=== PATIENT | female | born 1955 | race Caucasian/White ===

== ENCOUNTER → 2019-12-18 10:18 | Outpatient (CLI) | payer MEDICARE, MEDICAID, SELFPAY ==
[2019-12-18 13:08] LABS: Coronavirus 19 IgG Antibody Negative (Negative); Coronavirus 19 IgM Antibody Negative (Negative)
== END ==
PROVIDERS: Visit Provider Internal Medicine Gastroenterology
DX: Z03.818 Encounter for observation for suspected exposure to other biological agents ruled out (principal)
CPT/HCPCS: 36415; 86328

== ENCOUNTER → 2019-12-24 10:15 | Outpatient (CLI) | payer MEDICARE, MEDICAID, SELFPAY ==
--- NOTE | 2019-12-24 10:17 | CT_ITS ---
PROCEDURE: CT ABDOMEN PELVIS W CON CLINICAL INDICATION: MELENA Rectal bleeding COMPARISON: No exams were available for comparison TECHNIQUE: IV Contrast: 75ML OPTIRAY 350 Oral Contrast none Axial images obtained with sagittal and coronal reformats. All CT scans at the facility use one or more dose reduction, viz: automated exposure control, ma/kV adjustment per patient size (including targeted exams where dose is matched to indication, i.e. head), or iterative reconstruction technique. FINDINGS: LOWER THORAX: There are mild atelectatic or fibrotic changes in the lingula ABDOMEN & PELVIS: Prior cholecystectomy with biliary ectasia. 8 mm hypodensity is present in the right hepatic lobe anteriorly may be due to small cyst. The spleen and adrenal glands have an unremarkable appearance. There is an exophytic lobular appearing isodense area projecting off the anterior aspect of the tail the pancreas measuring 11 by 8 mm. There is a small calcification along the left lateral aspect of this lesion. Average density is less than 10 Hounsfield units. No obvious pancreatic ductal dilatation.. The right kidney has an unremarkable appearance. There is some cortical scarring of the left kidney anteriorly. Suspect a small cyst along the lower pole of the right kidney at 9 mm. There has been a prior hysterectomy. No evidence of intestinal obstruction or free air. No evidence of appendicitis or diverticulitis. Small amount of fluid is present in the central pelvic region slightly to the right. There are degenerative changes in the lumbar spine and hips IMPRESSION: 1. 11 x 8 mm hypodense lesion projects off the anterior aspect of the tail the pancreas. This is indeterminate possibly due to cystic lesion or a side-branch intraductal pancreatic mucinous neoplasm/IPMN. MRI with pancreatic protocol suggested for further evaluation 2. Other nonacute findings as described above Dictated by: Lion Harris MD 12/25/2019 10:59 Electronically signed by Lion Harris MD in [place] 12/25/2019 10:59
== END ==
PROVIDERS: PCP Nurse Practitioner Family; Visit Provider Nurse Practitioner Family
DX: K92.1 Melena (principal)
CPT/HCPCS: 74177; Q9967

== ENCOUNTER → 2020-01-01 10:39 | Outpatient (CLI) | payer MEDICARE, MEDICAID, SELFPAY ==
--- NOTE | 2020-01-01 10:43 | MR_ITS ---
PROCEDURE: MR ABDOMEN WO/W CON CLINICAL INDICATION: NEOPLASM OF UNCERTAIN BEHAVIOR, LESION SEEN ON CT IN PACREAS Pancreatic lesion follow-up COMPARISON: CT ABDOMEN PELVIS W CON from 12/24/2019 TECHNIQUE: Routine multiplanar multi echo sequences are performed without and with gadolinium enhancement. MRCP images also performed. FINDINGS: There is a 10 mm cyst in the lower pole of the right kidney. A small cystic areas present in the junction of the right left hepatic lobe at 6 mm. The spleen and adrenal glands have an unremarkable appearance. There has been a prior cholecystectomy with ductal ectasia. There is a mildly prominent cystic duct remnant measuring approximately 10 mm in diameter. There is an exophytic lobulated cystic lesion along the anterior aspect of the tail the pancreas measuring 1.3 by 0.8 cm corresponding to the CT abnormality. This does not demonstrate contrast enhancement. This is hypointense on T1 and hyperintense on T2. MRCP images are obtained under somewhat limited secondary to motion artifact. This lesion however does not appear to communicate with the pancreatic duct. CT did show a small focus of calcification along the posterior aspect of this lesion. IMPRESSION: 1.3 x 0.8 cm cystic lesion of the tail the pancreas. The this is nonspecific and could be due to a small pseudo cyst as there is a small focus of calcification noted on the CT scan. A small cystic pancreatic neoplasm is not excluded. Suggest [address] follow-up to confirm short term stability. Prior cholecystectomy. There is mild prominence of the cystic duct remnant Dictated by: Lion Harris MD 01/15/2020 10:52 Electronically signed by Lion Harris MD in [place] 01/15/2020 10:52
[2020-01-01 11:11] LABS: Blood Urea Nitrogen 10 mg/dl (7-17); Estimated Glomerular Filt Rate 84 ml/min (>60); GFR (African American) 102 ML/MIN (>60)
== END ==
LOC: RAD 10:40
PROVIDERS: PCP Nurse Practitioner Family; Visit Provider Nurse Practitioner Family
DX: D37.8 Neoplasm of uncertain behavior of other specified digestive organs (principal)
CPT/HCPCS: 36415; 74183; 82565; 84520; A9576

== ENCOUNTER → 2020-01-07 10:51 | Outpatient (CLI) | payer MEDICARE, MEDICAID, SELFPAY | PROVIDERS: PCP Nurse Practitioner Family; Visit Provider Nurse Practitioner Family | DX: D37.8 Neoplasm of uncertain behavior of other specified digestive organs (principal) ==

== ENCOUNTER → 2020-03-08 13:05 | Outpatient (POV) | payer MEDICARE, MEDICAID, SELFPAY ==
[2020-03-08 14:18] LABS: Basophils # 0.2 K/mm3 (0-0.2); Basophils % 1.5 % (0.1-2.0); Eosinophils # 0.6 K/mm3 (0.0-0.4); Eosinophils % 6.2 % (0.1-12.0); Hematocrit 39.9 % (37.0-47.0); Hemoglobin 13.8 g/dL (12.2-16.2); Lymphocytes # 3.1 K/mm3 (0.7-4.5); Lymphocytes % 30.3 % (10-50); Mean Corpuscular HGB Conc 34.7 g/dL (31.8-35.4); Mean Corpuscular Hemoglobin 31.2 pg (27.0-31.2); Mean Platelet Volume 8.5 fl (7.4-10.4); Monocytes # 0.5 K/mm3 (0.1-1.0); Monocytes % 5.2 % (1.7-9.3); Neutrophils # 5.8 K/mm3 (1.8-7.8); Neutrophils % 56.9 % (37.0-80.0); Platelet Count 266 K/mm3 (142-424); Red Blood Count 4.43 M/mm3 (4.20-5.40); Red Cell Distribution Width 13.6 % (11.5-17.5); White Blood Count 10.2 K/mm3 (4.8-10.8)
[2020-03-08 14:46] LABS: Alanine Aminotransferase 12 U/L (12-78); Albumin Level 4.4 g/dl (3.5-5.0); Albumin/Globulin Ratio 1.6 (1.1-1.8); Alkaline Phosphatase 97 U/L (38-126); Anion Gap 12.4 mEq/L (5-15); Aspartate Amino Transferase 23 U/L (14-36); Bilirubin,Total 0.6 mg/dl (0.2-1.3); Blood Urea Nitrogen 10 mg/dl (7-17); Calcium 10.7 mg/dl (8.4-10.2); Carbon Dioxide 33 mmol/L (22.0-30.0); Chloride 99 mmol/L (98-107); Estimated Glomerular Filt Rate 84 ml/min (>60); GFR (African American) 102 ML/MIN (>60); Globulin 2.7 g/dL (1.3-3.2); Glucose 116 mg/dl (74-100); Potassium 4.4 mmoL/L (3.5-5.1); Sodium 140 mmol/L (136-145); Total Protein,Serum 7.1 g/dl (6.3-8.2)
[2020-03-08 15:06] LABS: Iron 66 ug/dL (37-170)
[2020-03-08 15:15] LABS: Total Iron Binding Capacity 279 ug/dL (265-497)
[2020-03-08 15:42] LABS: Ferritin 97.5 ng/ml (11.1-264)
[2020-03-08 15:50] LABS: C-Reactive Protein 0.7 mg/L (0-4)
== END ==
PROVIDERS: Visit Provider Nurse Practitioner Family
DX: R10.9 Unspecified abdominal pain (principal); K59.00 Constipation, unspecified; K62.5 Hemorrhage of anus and rectum
CPT/HCPCS: 36415; 80053; 82728; 83540; 83550; 85025; 86140

== ENCOUNTER → 2020-03-26 13:14 | Outpatient (CLI) | payer MEDICARE, MEDICAID, SELFPAY ==
[2020-03-26 14:55] LABS: Coronavirus 19 IgG Antibody Negative (Negative); Coronavirus 19 IgM Antibody Negative (Negative)
== END ==
PROVIDERS: Visit Provider Internal Medicine Gastroenterology
DX: Z01.818 Encounter for other preprocedural examination (principal); Z12.11 Encounter for screening for malignant neoplasm of colon
CPT/HCPCS: 36415; 86328

== ENCOUNTER 2020-03-29 13:12 | Day surgery (SDC) | payer MEDICARE, MEDICAID, SELFPAY ==
[2020-03-24 12:25] VITALS: BMI 25.0
[2020-03-29 13:53] VITALS: BP 166/59; PULSE 62; RESP 18; TEMP 36.3; O2SAT 96
[2020-03-29 14:50] VITALS: O2SAT 97
--- NOTE | 2020-03-29 14:56 | HMH.ANESCL ---
[facility] Anesthesia Checklist - Patient Identification Patient Identification: Arm Band - Structural Data Admitted From: Home Planned Operative Procedure/s: colonoscopy Consent for Planned Operative Procedure(s) Verified: Yes Verified Documents: Surgical Consent, History and Physical - NPO Status Verified Time NPO: 00:00 - Additional verifications Anesthesia Reactions: No - Airway Assessment C-Spine Mobility Assessed: Yes (mp2) TMJ Mobility Assessed: Yes Dentition: Good Dentition - Neurological Assessment Level of Consciousness: Awake, Alert - Anesthesia Plan Anesthesia Risk discussed: Yes Anesthesia Plan: Verified ASA Class: II Anesthesia Type: MAC [facility] History I have reviewed the patient's past medical history: Yes Medical History: Reports:: Hyperlipidemia, Hypertension Denies:: Cancer, Diabetes Mellitus Type 1, Diabetes Mellitus Type 2, Internal Pacemaker, MRSA, Seizures *Have you ever received a pneumonia vaccine?: Yes *Have you received a flu vaccine this season?: Yes Anesthesia experience/problems:: nac Other Surgeries: Yes: Cholecystectomy, , Hysterectomy-Total. No: Pacemaker Amputation: No Fractures: No - *Social History Last grade of school completed: High school graduate Smoking Status: Never smoker Alcohol Intake: never Substance Use Type: denies use *Occupational Status:: retired Housing: house Household Members: children *Travel in the last 8 weeks: None Family Hx:: No significant family history
--- NOTE | 2020-03-29 15:14 | P.PCN_ITS ---
[facility] Procedure Note Procedure Note:: Colonoscopy Procedure Report: Colonoscopy with monopolar ablation/coagulation of internal hemorrhoids to destruction Endoscopist: Augustin Tate II, MD Referring physician: KUMAR Strange Date of Procedure: March 29, 2020 Equipment: Olympus 180 variable stiffness pediatric colonoscope Sedation: MAC sedation Indication: Mrs. Griffin is a 64-year-old female with frequent bright red blood per rectum over the last 2 years. She is here for diagnostic colonoscopy. She has had smaller caliber stools and the feeling of incomplete bowel evacuation. She has tried dejq-yiz-nljxhzy stimulant laxatives which resulted in more bleeding. She felt that this was the cause and stopped. The bleeding is getting worse. She did go to the emergency department at [facility]. A CAT scan did not show any evidence of colitis, masses or diverticulosis. Her last colonoscopy 10 years ago at [facility] was reportedly normal. She does think that her paternal aunt and uncle both had colon cancer. She will get some intermittent lower abdominal discomfort with gas, bloating and obstipation related symptoms. Procedure: Prior to the procedure, a history and physical exam was performed, and patient's medications and allergies were reviewed. The risks, benefits and alternatives of the sedation and procedure were discussed with the patient. All questions were answered and informed consent was obtained. The patient was brought to the procedure room. Patient identification and proposed procedure were verified by the physician and the nurse. The patient was placed in a left lateral decubitus position and the scope was passed under direct vision. Throughout the procedure, the patient's blood pressure, pulse, and oxygen saturations were monitored continuously. The colonoscopy was accomplished without difficulty. The patient tolerated the procedure well. Findings: On digital rectal examination there was normal rectal tone. There were no external hemorrhoids. The colonoscope was introduced through the anal canal to the rectum and advanced to the cecum. The ileocecal valve and appendiceal orifice were identified. The scope was advanced a short distance into the ileum which appeared grossly normal. The scope was then withdrawn into the colon. The cecum, ascending, transverse, descending, sigmoid and rectum were grossly normal. There were no mucosal abnormalities identified. Upon retroflexion within the rectum there were grade 2 internal hemorrhoids.3 columns of the internal hem orrhoids were ablated/coagulated using monopolar current/ablation to destruction. The preparation was fair to good throughout with [place] Preparation Score of 7 out of 9. The cecal time was 12 minutes. Impression: 1. Normal colonoscopy with intubation of the terminal ileum 2. Grade 2 internal hemorrhoids status post monopolar ablation/coagulation to destruction Plan: The patient's rectal bleeding is from the internal hemorrhoids. I would recommend a fiber bowel regimen on a long-term daily maintenance basis (MiraLAX plus Konsyl). The patient will not require surveillance colonoscopy again for 10 years by ACS guidelines.
[2020-03-29 15:18] VITALS: BP 98/57; PULSE 66; RESP 18; TEMP 36.1; O2SAT 96
[2020-03-29 15:28] VITALS: BP 114/57; PULSE 59; RESP 18; O2SAT 96
[2020-03-29 15:38] VITALS: BP 108/48; PULSE 55; RESP 18; O2SAT 95
[2020-03-29 15:48] VITALS: BP 104/65; PULSE 62; RESP 18; O2SAT 95
== END 2020-03-29 15:48 | disposition home or self-care (01) ==
LOC: OUTP 13:14
PROVIDERS: PCP Nurse Practitioner Family; Visit Provider Internal Medicine Gastroenterology
PROC: 0DJD8ZZ Inspection of Lower Intestinal Tract, Via Natural or Artificial Opening Endoscopic (ICD-10-PCS; CPT 45378; principal; 2020-03-29 14:30)
DX: K62.5 Hemorrhage of anus and rectum (principal); K64.1 Second degree hemorrhoids; I10 Essential (primary) hypertension; E78.5 Hyperlipidemia, unspecified; Z79.82 Long term (current) use of aspirin; Z79.899 Other long term (current) drug therapy; Z90.710 Acquired absence of both cervix and uterus; Z90.49 Acquired absence of other specified parts of digestive tract
CPT/HCPCS: 46930